=== PATIENT | male | born 1940 | race Caucasian/White ===

== ENCOUNTER 2024-09-02 18:11 | Emergency (ER) | payer BC, SELFPAY ==
[2024-09-02 18:17] VITALS: BP 197/87
--- NOTE | 2024-09-02 18:21 | ED.GENMED ---
ED Provider Triage
<Stephon Kaufman PA-C - Last Filed: 09/02/24 18:22>
-
Patient seen by provider in Triage?: Seen in Triage
84-year-old male with history of A-fib not anticoagulated presents with fatigue shakiness dizziness and gradually worsening headache throughout the day. Denies any unilateral numbness or weakness. He notes shakes but denies fevers or chills.
Vital signs are stable through triage. Looks. Complains of severe headache. He is ambulatory. Will initiate workup with EKG CBC CMP and CT of head secondary to severity of his headache
Patient received medical screening exam through triage by healthcare provider. You may warrant further evaluation and treatment
History of Present Illness
<Stephon Kaufman PA-C - Last Filed: 09/02/24 18:22>
General
Chief Complaint: Cold/Flu/URI Symptoms
Time Seen by Provider: 09/02/24 18:36
<Aspen Rehman ONLINE EDITOR - Last Filed: 09/02/24 21:13>
General
Source: patient
Exam Limitations: none
Nursing documentation reviewed up to this point in time: agreed with
History of Present Illness
History of Present Illness:
84-year-old male with history of HTN, NIDDM, A-fib not anticoagulated states 6 a.m. had sudden sharp, electric like shooting pain up right side of neck up right side of head 'It felt like my head would explode.' 'I started losing my balance and I
felt a little dizzy.' States the pains come in 'jolts,' 10/10, lasting seconds then subside with residual mild ache.
Last episode was 30 minutes ago.
No recent illness, no URI. No head injury. Denies fever.
Past History
<Aspen Rehman, ONLINE EDITOR - Last Filed: 09/02/24 21:13>
Past History
ED Past Medical History: Arrthythmia (a fib), HTN and NIDDM
Social History
Tobacco: Non-smoker
Alcohol: None
Personal: Partner
Employment: Retired
Review of Systems
<Aspen Rehman ONLINE EDITOR - Last Filed: 09/02/24 21:13>
Review of Systems
Allergies reviewed?: Yes
All Other Systems: ROS reviewed and negative except as documented in HPI and ROS
Constitutional: Denies fever or fatigue
Respiratory: Denies trouble breathing
Cardiac: Denies chest pain
ABD/GI: Denies abdominal pain, nausea, vomiting or diarrhea
: Denies dysuria or difficulty voiding
Musculoskeletal: Reports no symptoms
Skin: Reports no symptoms
Neurological: Reports headache (Intermittent severe stabbing pains lasting seconds right neck and head); Denies weakness or numbness
Phy Exam
<Aspen Rehman, ONLINE EDITOR - Last Filed: 09/02/24 21:13>
Physical Exam
Physical Exam:
GENERAL: No acute distress. A&Ox3.
CONSTITUTIONAL: Afebrile.
EYES: PERRL, conjunctivae normal
HEAD: no tenderness to percussion of scalp
Neck: Supple
ENMT: moist mucus membranes, Pharynx nl, TMs normal
RESPIRATORY: Regular respirations, nonlabored, lungs clear.
CARDIOVASCULAR: Regular rate and rhythm, no murmurs, no rubs.
GI: Soft, nontender, normal BS
MUSCULOSKELETAL: Moves with ease. Well perfused.
SKIN: Warm, dry, pink
PSYCH: Normal mood and affect. Well kept, interactive and appropriate
NEUROLOGIC: Awake, alert and oriented. Speech clear. Cerebellum intact. No focal neurological deficits
Course
<Stephon Kaufman PA-C - Last Filed: 09/02/24 18:22>
Orders/Labs/Results
Orders:
Orders
09/02/24 18:18
Electrocardiogram (*1) Urgent
Reason for Study: Atrial Fibrillation
CT Head W/o Iv Contrast Urgent
Comment:
Reason For Exam: headache
EKG- Treatment ONCE
09/02/24 18:41
C-Reactive Protein Urgent
Comment: ADD ON
Complete Blood Count/With Diff Urgent
Comprehensive Metabolic Panel Urgent
09/02/24 18:55
Add On- LAB Urgent
Tests Added?: CRP
09/02/24 20:01
Gabapentin [Neurontin] 100 mg PO NOW STA
Abnormal Lab Results
09/02/24
18:41
RBC 3.48 L 10^6/uL
(4.70-6.10)
Hgb 10.9 L g/dL
(13.0-18.0)
Hct 31.1 L %
(39.0-52.0)
MCH 31.3 H pg
(27.0-31.0)
Absolute Eos (auto) 0.8 H 10^3/uL
(0-0.7)
Eosinophils % 10.7 H %
(0-6)
BUN 48 H mg/dl
(9-20)
Creatinine 4.0 H mg/dL
(0.7-1.3)
Glucose 130 H mg/dl
(70-99)
09/02/24 18:41
09/02/24 18:41
Vital Signs
Initial and Last Documented VS:
Initial Vital Signs
Temp Pulse Resp BP Pulse Ox
97.7 F 83 18 197/87 99
09/02/24 18:17 09/02/24 18:17 09/02/24 18:17 09/02/24 18:17 09/02/24 18:17
Last Documented Vital Signs
Temp Pulse Resp BP Pulse Ox
97.7 F 63 18 179/82 100
12/04/24 18:17 09/02/24 20:26 09/02/24 20:26 09/02/24 20:26 09/02/24 20:26
<Aspen Rehman, ONLINE EDITOR - Last Filed: 09/02/24 21:13>
Orders/Labs/Results
Orders:
Orders
09/02/24 18:18
Electrocardiogram (*1) Urgent
Reason for Study: Atrial Fibrillation
CT Head W/o Iv Contrast Urgent
Comment:
Reason For Exam: headache
EKG- Treatment ONCE
09/02/24 18:41
C-Reactive Protein Urgent
Comment: ADD ON
Complete Blood Count/With Diff Urgent
Comprehensive Metabolic Panel Urgent
09/02/24 18:55
Add On- LAB Urgent
Tests Added?: CRP
09/02/24 20:01
Gabapentin [Neurontin] 100 mg PO NOW STA
Abnormal Lab Results
09/02/24
18:41
RBC 3.48 L 10^6/uL
(4.70-6.10)
Hgb 10.9 L g/dL
(13.0-18.0)
Hct 31.1 L %
(39.0-52.0)
MCH 31.3 H pg
(27.0-31.0)
Absolute Eos (auto) 0.8 H 10^3/uL
(0-0.7)
Eosinophils % 10.7 H %
(0-6)
BUN 48 H mg/dl
(9-20)
Creatinine 4.0 H mg/dL
(0.7-1.3)
Glucose 130 H mg/dl
(70-99)
09/02/24 18:41
09/02/24 18:41
Vital Signs
Initial and Last Documented VS:
Initial Vital Signs
Temp Pulse Resp BP Pulse Ox
97.7 F 83 18 197/87 99
09/02/24 18:17 09/02/24 18:17 09/02/24 18:17 09/02/24 18:17 09/02/24 18:17
Last Documented Vital Signs
Temp Pulse Resp BP Pulse Ox
97.7 F 63 18 179/82 100
09/02/24 18:17 09/02/24 20:26 09/02/24 20:26 09/02/24 20:26 09/02/24 20:26
<Aspen Rehman, ONLINE EDITOR - Last Filed: 09/02/24 21:13>
MDM/Problems Addressed
Differential Diagnosis Includes:
Trigeminal neuralgis, cranial neuropathy
MDM/Problems Addressed:
84-year-old male with history of HTN, NIDDM, A-fib not anticoagulated states 6 a.m. had sudden sharp, electric like shooting pain up right side of neck up right side of head 'It felt like my head would explode.' 'I started losing my balance and I
felt a little dizzy.' States the pains come in 'jolts,' 10/10, lasting seconds then subside with residual mild ache.
Last episode was 30 minutes ago.
No recent illness, no URI. No head injury. Denies fever.
Well appearing, asymptomatic during initial exam
Normal neuro exam
EKG: NSR
84 yo male with Paroxysmal stabbing pains right neck, face and scalp since 6 a[address].
Head CT radiology report read: nothing acute
CBC: Hgb 10.9
CMP: BUN/Creat 48/4.0 GFR 14.6
Pt does have hx kidney problems, followed by Dr. Terry Aldrich
8:[address] P[address] Terry Laguerre who states pt last Creat 3.9, he has talked to pt about dialysis and pt is resistant
He states Gabapentin up to 300 mg daily is OK with his renal function
He stats he can keep his September appointment.
Pt is stable for discharge.
Rx for Gabapentin sent to his pharmacy
<Aspen Rehman NP - Last Filed: 09/02/24 21:13>
*Critical Care Note
Total Time (30-74mins, 75-104mins- exclusive of procedures): Not Applicable
ED Attending Note
<Stephon Kaufman PA-C - Last Filed: 09/02/24 18:22>
-
Portions of this chart may have been created with voice recognition software.� Occasional wrong word or��sound alike� substitutions may have occurred due to the inherent limitations of voice recognition software.
Discharge Plan
Departure
Patient Disposition: Home (Routine Discharge)
Date of Disposition: 09/02/24
Time of Disposition: 20:02
Patient with high blood pressure during this ER visit?: Yes
Condition: Fair
Discharge Problem:
Right trigeminal neuralgia
Instructions: Trigeminal neuralgia
Prescriptions:
New
gabapentin 100 mg capsule
100 mg PO TID Qty: 15 0RF
No Action
latanoprost 0.005 % Drops
1 drp BOTH EYES HS
hydralazine 10 mg Tablet
10 mg PO TID
nifedipine 90 mg Tablet Extended Release
90 mg PO DAILY
Theragen Tablet
1 tab PO DAILY
acetaminophen [Tylenol Extra Strength] 500 mg Tablet
1,000 mg PO Q6HPRN PRN (Reason: mild pain)
glimepiride 1 mg Tablet
1 mg PO DAILY
simvastatin 20 mg Tablet
20 mg PO DAILY
finasteride 5 mg Tablet
5 mg PO DAILY
omeprazole magnesium [Prilosec OTC] 20 mg Tablet,Delayed Release (Dr/Ec)
20 mg PO DAILYPRN PRN (Reason: gerd)
metoprolol tartrate 25 mg Tablet
12.5 mg PO BID
Systane (PF) 0.4-0.3 % Dropperette
1 drp BOTH EYES Q4HPRN PRN (Reason: dry eyes)
amlodipine 10 mg Tablet
10 mg PO DAILY
Referrals:
Roldan Velasco Jr., DO [Family Provider] - Call in 1-3 days for appt
Activity Restrictions/Additional Instructions:
As we discussed, your symptoms are most consistent with trigeminal neuralgia.
I sent a prescription to your pharmacy for gabapentin to take 100 mg 3 times a day for the next 5 days
See your primary doctor in 2 days for reevaluation and let him know if the gabapentin is helping.
I spoke with your sample tester grinder Dr. Terry Avelar. He says your kidney function is your baseline. Keep your appointment for September
Interventions
Interventions:
*Risk Screen - Suicide Last Done: 09/02/24 18:17
*General Assessment Last Done: 09/02/24 18:17
*Neglect/Abuse Screening Last Done: 09/02/24 18:17
ED- Fall Risk Assessment Last Done: 09/02/24 18:37
*ED COVID-19 Vaccine History Last Done: 09/02/24 18:37
*Nursing Disposition Last Done: 09/02/24 20:29
ED- Pulmonary Assessment Last Done: 09/02/24 18:37
Discharge Date and Time
Discharge Date/Time: 09/02/24 20:29
Print Language: SPANISH
[2024-09-02 18:42] VITALS: BP 158/88
[2024-09-02 19:05] LABS: ALT (SGPT) 20 U/L (0-50); AST (SGOT) 27 U/L (17-59); Albumin 4.7 g/dl (3.5-5.0); Alkaline Phosphatase 72 U/L (38-126); Blood Urea Nitrogen 48 mg/dl (9-20); Calcium 9.4 mg/dl (8.4-10.2); Carbon Dioxide 23 mmol/L (22-30); Chloride 105 mmol/L (98-107); Glucose 130 mg/dl (70-99); Potassium 4.5 mmol/L (3.5-5.1); Sodium 143 mmol/L (135-145); Total Bilirubin 0.4 mg/dl (0.2-1.3); Total Protein 7.8 g/dl (6.3-8.2); eGFR 14.06
[2024-09-02 19:14] LABS: C-Reactive Protein < 5.00 mg/L (0.0-10.00)
[2024-09-02 19:15] LABS: % Basophils 0.1 % (0-2); % Eosinophils 10.7 % (0-6); % Immature Granulocytes 0.4 % (0-0.5); % Lymphocytes 32.2 % (20.5-51.1); % Monocytes 7.7 % (1.7-9.3); % Neutrophils 48.9 % (42.2-75.2); Absolute Eosinophils 0.8 10^3/uL (0-0.7); Absolute Lymphocytes 2.4 10^3/uL (1.2-3.4); Absolute Monocytes 0.6 10^3/uL (0.1-0.6); Absolute Neutrophils 3.6 10^3/uL (1.4-6.5); Hematocrit 31.1 % (39.0-52.0); Hemoglobin 10.9 g/dL (13.0-18.0); Mean Corpuscular Hgb 31.3 pg (27.0-31.0); Mean Corpuscular Volume 89.4 fL (80.0-94.0); Mean Platelet Volume 10.3 fL (7.4-10.4); Nucleated Red Blood Cells % 0 % (-); Platelet Count 218 10^3/uL (130-400); Red Blood Cell Count 3.48 10^6/uL (4.70-6.10); Red Cell Dist. Width 12.9 % (11.5-14.5); White Blood Cell Count 7.3 10^3/uL (4.8-10.8)
[2024-09-02] MEDS: NEURONTIN 100 MG PO (20:25)
[2024-09-02 20:26] VITALS: BP 179/82
== END 2024-09-02 20:29 | disposition home or self-care (01) ==
LOC: EMR 18:11
PROVIDERS: Physician Assistant; EMERGENCY PHYSICIAN Emergency Medicine; FAMILY PHYSICIAN Family Medicine
DX: G50.0 Trigeminal neuralgia (principal); I10 Essential (primary) hypertension; E11.9 Type 2 diabetes mellitus without complications; I48.91 Unspecified atrial fibrillation
CPT/HCPCS: 99284; 70450; 80053; 85025; 86140; 93005